=== PATIENT | female | born 1970 | race Caucasian/White ===

== ENCOUNTER 2023-05-10 14:38 | Emergency (ER) | payer MEDICAID ==
[~2023-05-10] VITALS: Ht 154.9 cm; Wt 35.8 kg
[2023-05-10 14:46] VITALS: BP 169/89; PULSE 110; RESP 16; TEMP 98.3; O2SAT 100
--- NOTE | 2023-05-10 16:38 | NUR ---
NIECE AT BEDSIDE WITH PATIENT.
== END 2023-05-10 17:28 | disposition home or self-care (01) ==
LOC: ER 14:39
DX: R22.9 Localized swelling, mass and lump, unspecified (principal)
CPT/HCPCS: 99281